=== PATIENT | female | born 1995 | race Caucasian/White ===

== ENCOUNTER → 2016-07-17 | Outpatient (CLI) | payer OTHER ==
[~2016-07-17] MED LIST: IBUPROFEN800 MG PO; NO MEDICATIONS
--- NOTE | ~2016-07-17 | US6 ---
[facility] A Service of [facility] & [facility] RADIOLOGY TEXT RESULTS PATIENT: MINERVA BETTENCOURT LOCATION: [facility] : [birth year] UNIT #: [id number] AGE: [address]: HUONG JAMES APRN SEX: F ORDER DR: [id number] [facility] [address] [place], [place] [address] [id number] O MR#: [id number] Acc #: [id number] NAME: MINERVA BETTENCOURT : 1995 SEX: F STUDY DATE/TIME: 07/17/2016 9:24 UNIT: [facility] ROOM: STUDY DESCRIPTION: US Abdominal Limited Attending Physician: Torito Yarbrough Referring Physician: Torito Yarbrough Ordering Physician: Torito Yarbrough Primary Care Physician: Torito Yarbrough MEDICAL IMAGING REPORT This report is preliminary unless electronic signature is present EXAM Right upper quadrant abdominal ultrasound INDICATIONS Right upper quadrant abdominal pain for the past week. PROCEDURE Bowie-scale and Doppler imaging right upper quadrant of the abdomen COMPARISON None FINDINGS Pancreas completely obscured and not well seen. Liver measures 11.4 cm. There is a 2-3 mm polyp in the gallbladder. Otherwise, gallbladder is unremarkable. Right kidney measures 8.7 cm and is normal. IMPRESSION 2-3 mm gallbladder polyp. Otherwise negative right upper quadrant ultrasound. Dictated by... Rick Rodas M.D. THIS IS AN ELECTRONICALLY VERIFIED REPORT Rick Rodas M.D. at 07/20/2016 8:22 AM Sana TD: 07/17/2016 11:14 JOB #: [id number] MEDICAL IMAGING REPORT Page 1 of 1 COPY
== END | disposition home or self-care (01) ==
LOC: CWCC 09:10
DX: R10.11 Right upper quadrant pain (principal); K82.4 Cholesterolosis of gallbladder
CPT/HCPCS: 76705

== ENCOUNTER → 2016-09-10 | Outpatient (CLI) | payer BC ==
--- NOTE | ~2016-09-10 | NM22 ---
[facility] A Service of [facility] & [facility] RADIOLOGY TEXT RESULTS PATIENT: MINERVA BETTENCOURT LOCATION: [facility] : [birth year] UNIT #: [id number] AGE: [address]: Pio Clinton MD SEX: F ORDER DR: [id number] [facility] [address] [place], [place] [address] [id number] O MR#: [id number] Acc #: [id number] NAME: MINERVA BETTENCOURT : 1995 SEX: F STUDY DATE/TIME: 09/10/2016 9:56 UNIT: [facility] ROOM: STUDY DESCRIPTION: NM Hepatobiliary W GB Pharm Attending Physician: Pio Clinton M.D. Referring Physician: Pio Clinton M.D. Ordering Physician: Pio Clinton M.D. Primary Care Physician: Torito Yarbrough MEDICAL IMAGING REPORT This report is preliminary unless electronic signature is present EXAM HIDA scan with Kinevac CCK, 09/10/16. HISTORY Right upper quadrant abdominal pain and nausea after meals with abdominal bloating for 10 years worsening in the last 3 months. FINDINGS The patient received an intravenous injection of 6 mCi of technetium 99m tagged Choletec for hepatobiliary imaging. One hour following injection of the radiopharmaceutical, the patient received an intravenous injection of 1.3 mcg of Kinevac. There is homogeneous distribution of the radiotracer throughout the liver. Gallbladder activity was seen by 15 minutes postinjection of the radiopharmaceutical. Following Kinevac injection, the gallbladder ejection fraction was 37.6% (normal is greater than 30%). IMPRESSION Normal HIDA scan with gallbladder ejection fraction of 37.6%. Dictated by... Edward Leone M.D. THIS IS AN ELECTRONICALLY VERIFIED REPORT Edward Leone M.D. at 09/11/2016 8:27 AM ARIADNA/flora TD: 09/10/2016 15:26 JOB #: [id number] MEDICAL IMAGING REPORT Page 1 of 1 COPY
== END | disposition home or self-care (01) ==
LOC: CNUC 09:07
DX: R10.13 Epigastric pain (principal)
CPT/HCPCS: 78227; A9537; J2805